=== PATIENT | male | born 1945 | race Caucasian/White ===

== ENCOUNTER 2024-07-19 16:01 | Observation (INO) | payer MEDICARE ==
[~2024-07-19] VITALS: Ht 177.8 cm; Wt 59.2 kg
[~2024-07-19 16:01] MED LIST: INDOMETHACIN25 MG PO
[2024-07-19 16:30] LABS: BASOPHILS 0.7 % (0-2); EOSINOPHILS 1.1 % (0-6); HEMATOCRIT 41.6 % (35.0-50.0); HEMOGLOBIN 14.5 g/dL (12.0-18.0); MCH 34.2 (27-36); MCHC 34.9 g/dl (30-36); MONOCYTES 6.5 % (0-12); NEUTROPHILS 82.7 % (39-80); PLATELET COUNT 481 K/uL (140-440); RBC 4.24 M/ul (4.3-5.7); RDW 14.2 (10.5-15.0)
[2024-07-19] MEDS ORDERED: SODIUM CHLORIDE 0.9% 1,000 ML IV PRN (16:30)
[2024-07-19] MEDS ORDERED: CEFTRIAXONE/SODIUM CHLORIDE 2 GM/100 ML PIGGYBACK IV ONE (16:30)
[2024-07-19 16:43] LABS: PARTIAL THROMBOPLASTIN TIME 32.5 Sec (22.9-41.3)
[2024-07-19 16:51] LABS: LACTIC ACID, BLOOD 1.2 mmol/L (0.4-2.0)
[2024-07-19 16:58] LABS: ALBUMIN 2.3 g/dL (3.4-5.0); ALBUMIN/GLOBULIN RATIO 0.38 (1.1-2.4); BILIRUBIN, TOTAL 0.5 ng/dL (0.2-1.0); BUN/CREATININE RATIO 14.94 (6.0-28.6); CALCIUM 9.4 mg/dL (8.5-10.1); CREATININE, SERUM 0.87 mg/dL (0.70-1.30); PROTEIN, TOTAL 8.3 g/dL (6.4-8.2)
[2024-07-19 16:59] LABS: ALCOHOL, MEDICAL <3 ng/dL (<3); MAGNESIUM 1.5 mg/dL (1.8-2.4)
[2024-07-19 17:00] LABS: INR 1.03 (0.80-1.30); PROTIME 13.1 Sec (11.2-14.2)
[2024-07-19 17:52] LABS: BILIRUBIN, URINE NEGATIVE (negative); BLOOD/HGB, URINE NEGATIVE (Negative); KETONE, URINE TRACE (Negative); LEUK ESTERASE, URINE NEGATIVE (negative); NITRITE, URINE NEGATIVE (negative)
[2024-07-19 18:00] LABS: INFLUENZA B NAA NEGATIVE (NEGATIVE); RESPIRATORY SYNCYTIAL VIR NAA NEGATIVE (NEGATIVE)
[2024-07-19 18:06] LABS: AMPHETAMINES, URINE NEGATIVE (NEGATIVE); BARBITURATES, URINE NEGATIVE (NEGATIVE); BENZODIAZEPINE, URINE NEGATIVE (NEGATIVE); BUPRENORPHINE, URINE NEGATIVE (NEGATIVE); CANNABINOID, URINE POSITIVE (NEGATIVE); COCAINE, URINE NEGATIVE (NEGATIVE); ECSTASY, URINE NEGATIVE (NEGATIVE); FENTANYL, URINE NEGATIVE (NEGATIVE); METHADONE, URINE NEGATIVE (NEGATIVE); OPIATES, URINE NEGATIVE (NEGATIVE); OXYCODONE, URINE NEGATIVE (NEGATIVE); PHENCYCLIDINE, URINE NEGATIVE (NEGATIVE)
--- NOTE | 2024-07-19 20:23 | EKG ---
[facility] [address] [place], [place] [address] Signed Normal sinus rhythm Minimal voltage criteria for LVH, may be normal variant ( Sokolow-Mahajan ) ST \T\ Marked T wave abnormality, consider anterolateral ischemia Prolonged QT Abnormal ECG No previous ECGs available Confirmed by Jagdish Steele MD ([id number]) on 07/19/2024 8:23:37 PM Electronically Signed By: JAGDISH STEELE MD 07/19/242022 PATIENT NAME: ARTURO OLSEN Electrocardiogram DATE OF : 49 PHYSICIAN: JAGDISH STEELE MD REPORT #: [id number] REPORT IS CONFIDENTIAL AND NOT TO BE RELEASED WITHOUT AUTHORIZATION
--- NOTE | 2024-07-19 20:24 | EKG ---
[facility] [address] [place] [address] Signed Sinus rhythm with short CA ST \T\ Marked T wave abnormality, consider anterolateral ischemia Prolonged QT Abnormal ECG When compared with ECG of 19-JUL-2024 16:23, (Unconfirmed) No significant change was found Confirmed by Jagdish Steele MD ([id number]) on 07/19/2024 8:24:09 PM Electronically Signed By: JAGDISH STEELE MD 07/19/242023 PATIENT NAME: ARTURO OLSEN Electrocardiogram DATE OF : 49 PHYSICIAN: JAGDISH STEELE MD REPORT #: [id number] REPORT IS CONFIDENTIAL AND NOT TO BE RELEASED WITHOUT AUTHORIZATION
[2024-07-19] MEDS ORDERED: POTASSIUM CHLORIDE 10 MEQ/100 ML BAG IV SCH (20:30)
[2024-07-19] MEDS ORDERED: ondansetron HCL 4 MG/2 ML VIAL IV PRN (21:15)
[2024-07-19] MEDS ORDERED: ACETAMINOPHEN 325 MG TAB PO PRN (21:15)
--- NOTE | 2024-07-19 22:17 | NUR ---
PT ARRIVED VIA STRETCHER FROM ER, PT ALERT AND CHEERFUL, TRANSFERED TO BED WITH 3 PERSON ASSIST, REPORT RECEIVED FROM TIM HAYES, ASSUMING CARE OF PT, ADMIT IN PROGRESS.
[2024-07-19 22:52] VITALS: BP 124/75
[2024-07-19] MEDS ORDERED: MAGNESIUM OXIDE 400 MG TABLET PO ONE (23:45)
[2024-07-19] MEDS ORDERED: MAGNESIUM SULFATE 2 GM/50 ML BAG IV SCH (23:45)
--- NOTE | 2024-07-19 23:48 | NUR ---
CALLED TO UPDATE HIM ON TELEMETRY STRIPS FOR THIS PATIENT AND DISCUSS RHYTHM WITH SEVERELY INVERTED T-WAVE. ALSO DISCUSSED ELECTROLYTE REPLACEMENT, NEW ORDER TO DC PO MAGNESIUM ORDER AND INSTEAD ADMINISTER 4G MAGNESIUM IV DIVIDED INTO TWO INFUSIONS EACH OVER ONE HOUR.
[2024-07-20] VITALS (8 sets, daily range): BP systolic 124–154; BP diastolic 54–84
--- NOTE | 2024-07-20 00:08 | NUR ---
PT AWAKE BUT DROWSY, SPEECH CLEAR AND APPROPRIATE, MAGNESIUM 2GM IV STARTED PER ORDER IN R AC SL, SITE INTACT, TO BE INFUSED OVER 1 HOUR, PT RESTING WITH EYES CLOSED.
--- NOTE | 2024-07-20 00:54 | NUR ---
PT APPEARS TO SLEEP, RESP EVEN AND REG, MAGNESIUM AND POTASSIUM INFUSING WELL, CPOX AT 93%, HR 73
--- NOTE | 2024-07-20 01:02 | NUR ---
PT AWAKEN BY IV ALARM, 1ST MAGNESIUM COMPLETED, SL FLUSHED WITHOUT DIFFICULTY IN RIGHT AC, PT STATES HE THINKS ITS TIME TO GO, WHEN QUESTIONED WHAT HE MEANT HE SAID "GO TO COURT", PT REORIENTED TO PLACE, AND VOICED UNDERSTANDING, PT WATCHING TV, APPEARS DROWSY.
--- NOTE | 2024-07-20 01:36 | NUR ---
2ND POTASSIUM COMPLETED, PT AWAKEN BRIEFLY, TRYING TO REMEMBER WHAT HE WAS SUPPOSED TO BE DOING, REORIENTED TO TIME AND ENCOURAGED TO REST. PT DENIES NEEDS AT THIS TIME.
--- NOTE | 2024-07-20 01:53 | NUR ---
PT AWAKEN FOR SECOND DOSE OF MAGNESIUM, DOSE PER ORDER, INFUSING WELL PER RIGHT AC, PT WITHOUT REQUESTS, RESTING WITH EYES CLOSED WHEN LEFT UNDISTURBED.
--- NOTE | 2024-07-20 02:40 | NUR ---
RN TO ROOM FOR BED ALARM GOING OFF, PT DESIRES TO GO TO BR, 1PA ASSIST UP TO BSC, VOIDED 450ML YELLOW URINE, PT BACK TO BED, GAIT UNSTEADY, PT WITHOUT COMPLAINTS, MAGNESIUM INFUSION COMPLETE, SL FLUSHES WELL, SITE INTACT,BED ALARM ON. CPOX AT 93%. PT RESTING.
--- NOTE | 2024-07-20 03:51 | NUR ---
PT HEARD YELLING OUT TO SEE IF ANYONE IS AROUND, RN TO BEDSIDE, PT WONDERING WHERE HIS PARTNER IS, REORIENTED TO PLACE AND TIME, DISCUSSED PARTNER WILL BE COMING IN LATER THIS MORNING, PT STATES HE IS UNSURE WHAT THEY ARE GOING TO DO WHILE HE IS AT THE HOSPITAL, DISCUSSED PLAN OF CARE, PT DENIES NEEDS AT THIS TIME, BED ALONE ON.
--- NOTE | 2024-07-20 04:37 | NUR ---
PT SITTING UP IN BED, HOLLERING OUT HIS DOOR. THIS RN INTO ROOM, PT SAID HE NEEDED TO PISS. BSC, SL UNSTEADINESS. TRIED TO VOID, SAID GUESS I CAN'T. BACK TO BED, WONDERING WHEN HIS PEOPLE WILL BE PICKING HIM UP. SAID THEY WOULD BE HERE AT 4. ATTEMPTS TO REDIRECT WERE MET WITH WELL MY IS GONNA GET HER ASS KICKED, SHE IS HOME SLEEPING I AM HERE. BED ALARM PLACED. TV ON PER CHOICE.
[2024-07-20 05:24] LABS: BASOPHILS 3.3 % (0-2); EOSINOPHILS 1.9 % (0-6); HEMATOCRIT 35.2 % (35.0-50.0); HEMOGLOBIN 12.2 g/dL (12.0-18.0); LYMPHOCYTES 13.9 % (24-44); MCH 33.7 (27-36); MCHC 34.8 g/dl (30-36); MCV 96.8 fl (81-99); MONOCYTES 8.7 % (0-12); NEUTROPHILS 72.2 % (39-80); PLATELET COUNT 426 K/uL (140-440); RBC 3.64 M/ul (4.3-5.7); RDW 14.2 (10.5-15.0)
[2024-07-20 05:41] LABS: ALBUMIN 1.9 g/dL (3.4-5.0); ALBUMIN/GLOBULIN RATIO 0.39 (1.1-2.4); ANION GAP 17.4 (7-21); BILIRUBIN, TOTAL 0.3 ng/dL (0.2-1.0); BUN/CREATININE RATIO 11.76 (6.0-28.6); CALCIUM 8.6 mg/dL (8.5-10.1); CREATININE, SERUM 0.68 mg/dL (0.70-1.30); MAGNESIUM 2.3 mg/dL (1.8-2.4); POTASSIUM 3.4 mmol/L (3.5-5.1); PROTEIN, TOTAL 6.8 g/dL (6.4-8.2)
--- NOTE | 2024-07-20 05:59 | NUR ---
PT YELLED OUT TO GET HELP, PT WANTS TO TRY TO GET UP TO BSC, PT FRUSTRATED WITH NOT BEING ABLE TO LEAVE AT 0400, ALSO FOR BEING TRAPPED IN BED, DISCUSSED SR UP FOR SAFETY, PT ABLE TO STATE NAME AND PLACE CORRECTLY, UNABLE TO STATE YEAR, PT WATCHING TV, MOIST COUGH CONTINUES, NON PRODUCTIVE.
--- NOTE | 2024-07-20 06:37 | NUR ---
BENITA RT INTO ROOM TO COMPLETE EKG, PT TALKATIVE WITH RT.
--- NOTE | 2024-07-20 07:30 | NUR ---
UR CLINICAL REVIEW: 2 MN TEJ- MEETS OBS FOR ALTERED MENTAL STATUS. MEDICARE OBS @ 3 ORDER MATCHES REG NO AUTH REQUIRED PER MEDICARE RULES. PLAN TO DC TO HOME WHEN MEDICALLY CLEARED. 07/21/24
--- NOTE | 2024-07-20 07:43 | NUR ---
PATIENT UP TO COMMODE WITH ONE PERSON ASSIST TO VOID.
--- NOTE | 2024-07-20 08:04 | NUR ---
PATIENT TO X-RAY TO TWO VIEW CHEST X-RAY.
--- NOTE | 2024-07-20 08:09 | EKG ---
[facility] [address] [facility] [place] [address] Signed Normal sinus rhythm Marked ST abnormality, possible lateral subendocardial injury Prolonged QT Abnormal ECG When compared with ECG of 19-JUL-2024 18:19, No significant change was found Confirmed by Jagdish Steele MD ([id number]) on 07/20/2024 8:08:53 AM Electronically Signed By: JAGDISH STEELE MD 07/20/24808 PATIENT NAME: ARTURO OLSEN Electrocardiogram DATE OF : 49 PHYSICIAN: JAGDISH STEELE MD REPORT #: [id number] REPORT IS CONFIDENTIAL AND NOT TO BE RELEASED WITHOUT AUTHORIZATION
--- NOTE | 2024-07-20 08:41 | NUR ---
PATIENT IN BED AT THIS TIME. TRAILHEAD MAINTENANCE WORKER WENT INTO PATIENTS ROOM FOR HOURLY ROUNDS. CALL LIGHT WITHIN REACH, NO FUTHER NEEDS AT TIME.
--- NOTE | 2024-07-20 09:05 | NUR ---
PATIENT IS HAVE ECHO ULTRASOUND.
--- NOTE | 2024-07-20 09:41 | NUR ---
MORNING ASSESSMENT IS COMPLETE. PATIENT IS ASKING WHEN HE CAN GO HOME. BED ALARM IS ON.
--- NOTE | 2024-07-20 10:10 | NUR ---
PATIENT IS WORKING WITH PHYSICAL THERAPY/OCCUPATIONAL THERAPY AND AMBULATING IN THE HALLWAY WITH SBA AND GAIT BELT. PULSE UP TO 132 WITH AMBULATION.
--- NOTE | 2024-07-20 10:53 | NUR ---
PATIENT'S SIGNIFICANT OTHER IN ROOM. DR. GUSMAN AND BLANE FROM CASE MANAGEMENT IN TO SEE PATIENT.
--- NOTE | 2024-07-20 11:05 | NUR ---
VISITED DURING SPIRITUAL CARE ROUNDS. PT SUPPORTED BY WIND FARM SUPPORT SPECIALIST IN ROOM. BOTH IN OVERALL GOOD SPIRITS, NO IMMEDIATE NEEDS. DIRECTOR OF BRAND MARKETING PROVIDED SUPPORTIVE PRESENCE, HOSPITALTIY, PRAYER, FACILITATED INTERACTION WITH THERAPY ANIMAL. PT AND WIND FARM SUPPORT SPECIALIST EXPRESSED GRATITUDE.
[2024-07-20] MEDS ORDERED: POTASSIUM CHLORIDE 10 MEQ TABCR PO ONE (11:15)
--- NOTE | 2024-07-20 11:18 | NUR ---
CASE MANAGEMENT 0950: SPOKE TO PATIENT LIVES IN HOUSE WITH LIFE PARTNER AMADA. PATIENT DENIES ANY DME AT THIS TIME. PATIENT DENIES FINANCIAL NEEDS AT THIS TIME. PATIENT STATES "I LIVE ON [address] AND MY TWIN BROTHER LIVES NEXT TO ME." LIFE PARTNER AND BROTHER ABLE TO ASSIST WITH TRANSPORTATION. 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 CASE MANAGEMENT 1100: IN ROOM WITH PATIENT, LIFE PARTNER AND MD. LIFE PARTNER EXPLAINS THAT THEY HAVE HAD THE RECENT COLD GOING AROUND AND PATIENT IS WEAK. PATIENT HAS NOT BEEN EATING AND FEELING WEAKER. PATIENT PARTNER REQUESTING INFORMATION ON FWW AND SHOWER CHAIR. INFORMATION PROVIDED ON GETTING EQUIPMENT THROUGH [employer]. PATIENT REFUSES HOME HEALTH PT. PATIENT REQUESTING INFORMATION ON GETTING A PCP. PATIENT PUT ON LIST FOR THE PHYSCIAN CLINIC ESTABLISH CARE. DISCUSSED WITH LIFE PARTNER POSSIBLITY WITH GETTING INTO HIM INTO HER PCP BUT DECLINED.
--- NOTE | 2024-07-20 11:18 | NUR ---
PATIENT GIVEN 40 meq OF KCL. RIGHT AND LEFT A/C IV'S REMOVED WITH CATHETERS INTACT. SIGNIFICAN OTHER IS HELPING PATIENT GET DRESSED.
--- NOTE | 2024-07-20 11:39 | NUR ---
CASE MANAGEMENT 1130: [facility] CALLING FOR A FOLLOW UP APPOINTMENT FOR PATIENT ON DISCHARGE. FREDDY ARGUELLES REFERRING PATIENT ON THE CLINIC [employer] DOC FOR REQUESTING PCP.
== END 2024-07-20 11:40 | disposition home or self-care (01) ==
LOC: ED 16:01 → MS 16:03
PROVIDERS: Emergency Medicine; Internal Medicine; ADMIT Student in an Organized Health Care Education/Training Program; ATTEND Student in an Organized Health Care Education/Training Program
DX: E87.6 Hypokalemia (principal); R53.1 Weakness; F10.90 Alcohol use, unspecified, uncomplicated; Z87.891 Personal history of nicotine dependence
CPT/HCPCS: 36415; 51701; 70450; 71045; 71046; 71260; 80053; 80307; 81003; 82140; 83605; 83735; 83880; 84484; 85025; 85610; 85730; 87040; 87502; 93005; 93010; 93306; 94762; 96366; 96367; 97161; 97530; 99285-25; A9270; G0378; G0480; J0696; J3475; J3480; J7030; Q9967; U0002

== ENCOUNTER 2025-01-20 11:36 | Emergency (ER) | payer MEDICARE ==
[~2025-01-20] VITALS: Ht 177.8 cm; Wt 62.0 kg
[2025-01-20 15:49] VITALS: BP 149/76
== END 2025-01-20 15:45 | disposition home or self-care (01) ==
LOC: ED 11:36
DX: M54.50 Low back pain, unspecified (principal); Z87.891 Personal history of nicotine dependence
CPT/HCPCS: 72128; 72131; 99283-25